=== PATIENT | female | born 1950 | race Two or more races ===

== ENCOUNTER 2017-11-13 12:03 | Outpatient (CLI) | payer MEDICARE, MEDICAID ==
--- NOTE | 2017-11-13 13:11 | Diagnostic Imaging Report ---
Indication: Cough Technique: 2 views of the chest Comparison: None Findings: There is some atelectasis or scarring at the right lateral lung base. Lungs and pleural spaces are clear. Heart size is normal. The aorta is tortuous and ectatic. There are multiple vertebral body compression fracture deformities involving the mid and lower thoracic spine and the lumbar spine. There is questionably heterogeneity to the bones. There are multiple old healed bilateral rib fractures Impression: No acute cardiopulmonary process Multiple vertebral body compression fractures, age indeterminate. Consider MRI for better characterization if clinically relevant Bilateral healed rib fracture deformities Equivocal heterogeneity to the bone attenuation, likely on the basis of osteoporotic change, but neoplastic involvement also a possibility. Correlate with clinical history
== END 2017-11-13 14:03 | disposition home or self-care (01) ==
LOC: RAD 12:03
DX: R05 Cough (principal)
CPT/HCPCS: 71046

== ENCOUNTER 2020-06-27 13:51 | Outpatient (CLI) | payer MEDICARE, MEDICAID ==
[~2020-06-27] VITALS: Ht 154.9 cm; Wt 83.0 kg
[2020-06-27 14:11] VITALS: BP 133/75
[2020-06-27] MEDS ORDERED: LETROZOLE2.5 MG ORAL (14:52)
[2020-06-27] MEDS ORDERED: ERGOCALCIFEROL ORAL (14:52)
[2020-06-27] MEDS ORDERED: OYSTER SHELL C500 MG PO (14:52)
[2020-06-27] MEDS ORDERED: VERZENIO ORAL (14:52)
[2020-06-27] MEDS ORDERED: PROTONIX20 MG ORAL (14:52)
--- NOTE | 2020-06-27 15:45 | Consultation ---
DATE OF CONSULTATION: 06/27/2020 CONSULTING PHYSICIAN: Herbert Alvarado MD. REFERRING PHYSICIAN: Rocky Kimball MD. CHIEF COMPLAINT: Referral for screening colonoscopy. PAST MEDICAL HISTORY: 1. DVT. 2. Anemia. 3. Hypertension. 4. History of breast cancer with bone mets. PAST SURGICAL HISTORY: 1. Left ankle surgery. 2. Right hip replacement. MEDICATIONS: Please see medication reconciliation list. FAMILY HISTORY: Noncontributory. SOCIAL HISTORY: The patient denies any tobacco, alcohol, or drug abuse. REVIEW OF SYSTEMS: Twelve point review of systems was performed and was negative. ALLERGIES: No known allergies. PHYSICAL EXAMINATION: VITAL SIGNS: Temperature 97.2, blood pressure 133/75, pulse 74, respirations 20. Height is 5 feet 1 inch. Weight is 193. HEENT: Normocephalic, atraumatic. Sclerae are anicteric. NECK: Supple. No evidence of obvious lymphadenopathy. CARDIOVASCULAR: Regular rate and rhythm. Plus S1, S2. LUNGS: Clear to auscultation bilaterally. ABDOMEN: Positive bowel sounds. Soft and nontender. No rebound. No guarding. No peritoneal sign. EXTREMITIES: No cyanosis, no clubbing, no edema. ASSESSMENT AND PLAN: This is a 70-year-old female with family history of colon cancer with sister, needs to have a colonoscopy, never had one before. Plan to do a colonoscopy. The patient was given instruction for the prep and for the procedure. Risks and benefits was explained to her. We will schedule her for next week. I want to thank Dr. Rocky Kimball for this kind referral. Herbert Alvarado M.D. DR: ASIF JOB#: [id number] CC: Rocky Kimball M.D.
== END 2020-06-27 15:51 | disposition home or self-care (01) ==
LOC: PAN 13:51
DX: Z00.00 Encounter for general adult medical examination without abnormal findings (principal); Z86.718 Personal history of other venous thrombosis and embolism; I10 Essential (primary) hypertension; Z85.3 Personal history of malignant neoplasm of breast; Z85.830 Personal history of malignant neoplasm of bone
CPT/HCPCS: G0463

== ENCOUNTER 2020-07-18 07:58 | Day surgery (SDC) | payer MEDICARE, MEDICAID ==
[~2020-07-18] VITALS: Ht 160 cm; Wt 59.0 kg
[2020-07-18] VITALS (8 sets, daily range): BP systolic 118–149; BP diastolic 71–87
[~2020-07-18 07:58] MED LIST: ERGOCALCIFEROL ORAL; LETROZOLE2.5 MG ORAL; OYSTER SHELL C500 MG PO; PROTONIX20 MG ORAL; VERZENIO ORAL
[2020-07-18] MEDS ORDERED: LR 1000ml 1,000 ML IVLG SCH ×2 (08:00→09:15)
[2020-07-18] MEDS ORDERED: METOPROLOL SUCC50 MG ORAL (08:37)
--- NOTE | 2020-07-18 09:10 | Anethesia Preoperative Eval ---
Anesthesia Pre-op PMH/ROS General Date of Evaluation: Jul 18, 2020 Time of Evaluation: 09:03 Anesthesiologist: Ria ASA Score: ASA 3 Mallampati Score Class I : Soft palate, uvula, fauces, pillars visible Class II: Soft palate, uvula, fauces visible Class III: Soft palate, base of uvula visible Class IV: Only hard plate visible Mallampati Classification: Class II Surgeon: Christiano Diagnosis: Colon CA screening Surgical Procedure: COlonoscopy Anesthesia History: none Family History: no anesthesia problems Allergies: Coded Allergies: No Known Allergies (Unverified , 07/13/20) Medications: see eMAR Patient NPO?: Yes Past Medical History Cardiovascular: Reports: HTN; Denies: CAD, LA, valve dz, arrhythmia, other Pulmonary: Denies: asthma, COPD, SOPHIA, other Gastrointestinal/Genitourinary: Reports: GERD Neurologic/Psychiatric: Reports: depression/anxiety; Denies: dementia, CVA, TIA, other Endocrine: Reports: hypothyroidism; Denies: DM, steroids, other HEENT: Denies: cataract (L), cataract (R), glaucoma, WALES (L), WALES (R), other Hematology/Immune: Reports: anemia - mild, other - Breast CA; Denies: DVT, bleeding disorder Musculoskeletal/Integumentary: Reports: DJD, other - bone metastasuis; Denies: OA, RA, DDD, edema PMH Narrative: as above PSxH Narrative: See H&P Anesthesia Pre-op Phys. Exam Physician Exam Last Vital Signs Date Time Temp Pulse Resp B/P (MAP) Pulse Ox O2 Delivery O2 Flow Rate FiO2 07/18/20 08:56 Room Air 07/18/20 08:48 97.4 67 18 134/87 97 Constitutional: NAD Neurologic: CN 2-12 intact Cardiovascular: RRR, no M/R/G Respiratory: CTA Gastrointestinal: S/NT/ND Airway Exam Mallampati Score: Class II MO: limited Neck: stiff ROM: limited Teeth: missing Dentures: no upper, no lower Anesthesia Pre-op A/P Labs see chart Studies Pre-op Studies: EKG - SR Risk Assessment & Plan Assessment: ASA 3 Plan: MAC Status Change Before Surgery: Nba Henry MD Jul 18, 2020 09:10
--- NOTE | 2020-07-18 09:38 | Short Stay Surgery H&P ---
History of Present Illness History of Present Illness Chief Complaint see office consult note HPI Daysi Garvey Allen is a 70 year old female who was admitted on for Anemia, Colon Screening Patient History Allergies: Coded Allergies: No Known Allergies (Unverified , 07/13/20) Medication History Scheduled Calcium Carbonate (Oyster Shell Calcium), 500 MG PO BID, (Reported) Letrozole (Letrozole), 2.5 MG ORAL DAILY, (Reported) Metoprolol Succinate* (Metoprolol Succinate*), 50 MG ORAL DAILY, (Reported) Pantoprazole Sodium (Protonix), 20 MG ORAL DAILY, (Reported) [Ergocalciferol ], 50,000 ORAL QWEEK, (Reported) [Verzenio], 150 MG ORAL BID, (Reported) Physical Exam Vital Signs Last Vital Signs Date Time Temp Pulse Resp B/P (MAP) Pulse Ox O2 Delivery O2 Flow Rate FiO2 07/18/20 08:56 Room Air 07/18/20 08:48 97.4 67 18 134/87 97 Plan Attestation Are the patient's medical conditions optimized for surgery? Herbert Alvarado MD Jul 18, 2020 09:38
--- NOTE | 2020-07-18 09:38 | Pre-Procedure Note/Attestation ---
Pre-Procedure Note/Attestation Complete Prior to Procedure Planned Procedure: not applicable Procedure Narrative: colonoscopy Indications for Procedure Pre-Operative Diagnosis: screening Attestation I attest that I discussed the nature of the procedure; its benefits; risks and complications; and alternatives (and the risks and benefits of such alternatives), prior to the procedure, with the patient (or the patient's legal claims representative). I attest that, if there was a reasonable possibility of needing a blood tra nsfusion, the patient (or the patient's legal claims representative) was given the [facility] standardized written summary, pursuant to the [place] Blood Safety Act ([place] Health and Safety Code # 1645, as amended). I attest that I re-evaluated the patient just prior to the surgery and that there has been no change in the patient's H&P, except as documented below: Herbert Alvarado MD Jul 18, 2020 09:38
--- NOTE | 2020-07-18 09:55 | Endoscopy Procedure Note ---
Endoscopy Procedure Note General Indication for Procedure: screening Procedures Performed: colonoscopy Operative Findings/Diagnosis: diverticulosis Specimen: yes Pt Tolerated Procedure Well: Yes Estimated Blood Loss: none Anesthesia Anesthesiologist: rigoberto Anesthesia: MAC Inserted Devices Implant(s) used?: No Quality Quality of Bowel Preparation: Excellent Did scope reach the cecum?: Yes Was there any complications?: No GI Core Measures 50 yrs or older w/o bx or poly: No 10yrs. F/U recommended: Yes If not recommended, why?: Above average risk 18 years or older w/prev. colo: No Herbert Alvarado MD Jul 18, 2020 09:55
[2020-07-18] MEDS ORDERED: fentaNYL 100 mcg/2 mL IV ONE (10:00)
[2020-07-18] MEDS ORDERED: LR 1000ml ONE (10:00)
--- NOTE | 2020-07-18 10:03 | Immediate Post-Op Evaluation ---
Immediate Post-Op Evalulation Immediate Post-Op Evalulation Procedure: Colonoscopy Date of Evaluation: Jul 18, 2020 Time of Evaluation: 10:02 IV Fluids: 400 Blood Products: none Estimated Blood Loss: none Urinary Output: none Blood Pressure Systolic: 127 Blood Pressure Diastolic: 72 Pulse Rate: 68 Respiratory Rate: 20 O2 Sat by Pulse Oximetry: 99 Temperature (Fahrenheit): 97.8 Pain Score (1-10): 1 Nausea: No Vomiting: No Complications none Patient Status: awake, patent, none Hydration Status: adequate Nba Rollins MD Jul 18, 2020 10:03
--- NOTE | 2020-07-18 10:15 | Procedure Note ---
DATE OF PROCEDURE: 07/18/2020 SURGEON: Herbert Alvarado MD. PROCEDURE: Colonoscopy with biopsy. ANESTHESIA: Per Dr. Rollins. INSTRUMENT: Olympus adult flexible colonoscope. INDICATION: Screening colonoscopy. REASON FOR PROCEDURE: The procedure, risks, benefits, and possible consequences, including hemorrhage, aspiration, perforation and infection, and alternative treatments, were explained to the patient/legal guardian by Dr. Herbert Alvarado and the patient/legal guardian understood and accepted these risks. PROCEDURE IN DETAIL: After informed consent was obtained and the patient was adequately sedated, first rectal exam was performed which was positive for internal hemorrhoids. Then, the scope was advanced from the rectum into the cecum and then subsequently into terminal ileum. Quality of prep was very good. The patient had about 1.5 cm lipoma in transverse colon, which was biopsied. No obvious other polyps were seen. There was evidence of moderate left-sided diverticulosis. Retroflexion of rectum showed evidence of medium-sized nonbleeding internal hemorrhoids. SUMMARY OF FINDINGS: 1. A 1.5 cm lipoma in transverse colon, status post biopsy. 2. Diverticulosis of left colon. 3. Internal hemorrhoids. RECOMMENDATIONS: Follow up biopsy results and treat accordingly. Herbert Alvarado M.D. DR: Ankush JOB#: [id number] CC:
--- NOTE | 2020-07-18 11:32 | 48 Hour Post Anesthesia Eval ---
Post Anesthesia Evaluation Procedure: Colonoscopy Date of Evaluation: Jul 18, 2020 Time of Evaluation: 11:31 Blood Pressure Systolic: 142 0: 76 Pulse Rate: 78 Respiratory Rate: 20 Temperature (Fahrenheit): 97.6 O2 Sat by Pulse Oximetry: 98 Airway: patent Nausea: No Vomiting: No Pain Intensity: 1 Hydration Status: adequate Cardiopulmonary Status: stable Mental Status/LOC: patient returned to baseline Follow-up Care/Observations: n/a Post-Anesthesia Complications: none Follow-up care needed: ready to discharge Nba Rollins MD Jul 18, 2020 11:32
== END 2020-07-18 11:05 | disposition home or self-care (01) ==
LOC: GAS 07:58
DX: Z12.11 Encounter for screening for malignant neoplasm of colon (principal); D12.3 Benign neoplasm of transverse colon; K57.30 Diverticulosis of large intestine without perforation or abscess without bleeding; K64.8 Other hemorrhoids; D64.9 Anemia, unspecified; Z79.899 Other long term (current) drug therapy; I10 Essential (primary) hypertension; K21.9 Gastro-esophageal reflux disease without esophagitis; E03.9 Hypothyroidism, unspecified; F32.9 Major depressive disorder, single episode, unspecified; F41.9 Anxiety disorder, unspecified; Z85.3 Personal history of malignant neoplasm of breast; M19.90 Unspecified osteoarthritis, unspecified site
CPT/HCPCS: 45380; 93005; 94003; J2704; J3010; J7120; U0002; 94150